=== PATIENT | male | born 1945 | race Caucasian/White ===

== ENCOUNTER 2024-05-13 08:06 | Observation (INO) | payer MEDICARE, OTHER ==
[2024-05-13 09:05] LABS: #Basophils 0.04 10x3/uL (0.0-0.2); %Basophils 0.6 % (0.0-1.0); %Eosinophils 2.9 % (0.0-10.0); %Lymphocytes 22.5 % (21.0-51.0); %Monocytes 8.7 % (0.0-10.0); %Neutrophils 65.1 % (42.0-75.0); Hematocrit 40.1 % (42.0-52.0); Hemoglobin 14.1 g/dL (14.0-18.0); Mean Corpuscular HGB CONC 35.2 g/dL (32.0-36.0); Mean Corpuscular Hemoglobin 31.9 pg (27.0-31.0); Mean Corpuscular Volume 90.7 fL (78.0-98.0); Mean Platelet Volume 10.5 fL (7.4-10.4); Platelet Count 179 10x3/uL (130-400); RBC Distribution Width 13.2 % (11.5-14.5); Red Blood Cell (RBC) Count 4.42 mill/uL (4.70-6.10)
[2024-05-13] MEDS ORDERED: Aspirin Chewable 81 MG TAB ONE (09:08)
[2024-05-13 09:25] LABS: ALT (SGPT) 15 U/L (8-55); AST (SGOT) 19 U/L (5-34); Alkaline Phosphatase 63 U/L (40-110); Anion Gap 12 mmol/L (10-20); BUN (Urea Nitrogen) 17 mg/dL (8.4-25.7); Bilirubin, Total 0.7 mg/dL (0.2-1.2); Calc. Creatinine Clearance 0 mL/min (70-130); Calcium 8.9 mg/dL (7.8-10.44); Carbon Dioxide 22 mmol/L (23-31); Chloride 113 mmol/L (98-107); Estimated GFR 92; Globulin 2.3 g/dL (2.4-3.5); Glucose 105 mg/dL (83-110); Protein, Total 6.3 g/dL (5.8-8.1); Sodium 143 mmol/L (136-145)
[2024-05-13 09:29] LABS: Troponin I Less than 0.010 ng/mL (< 0.028)
[2024-05-13] MEDS ORDERED: Nitroglycerin 0.4 MG TAB (25 Tab Bottle) SL PRN (10:44)
[2024-05-13] MEDS ORDERED: Acetaminophen 325 MG TAB PO PRN (10:44)
[2024-05-13 12:52] LABS: Troponin I Less than 0.010 ng/mL (< 0.028)
[2024-05-13 15:24] LABS: Troponin I Less than 0.010 ng/mL (< 0.028)
[2024-05-13 16:16] VITALS: BMI 27.9
[2024-05-13] MEDS: Famotidine 20 MG TAB PO SCH (19:44)
[2024-05-13] MEDS: Memantine 5 MG TAB PO SCH (19:44)
[2024-05-13] MEDS: Rosuvastatin 20 MG TAB PO SCH (19:44)
[2024-05-13] MEDS: Artificial Tear Ophth Sol 15 ML BOT EA EYE PRN (21:22)
[2024-05-14] MEDS ORDERED: Enoxaparin 40 MG (0.4 mL) SYRINGE SC SCH (09:00)
[2024-05-14] MEDS: Aspirin Chewable 81 MG TAB PO SCH (09:02)
[2024-05-14] MEDS: Minoxidil 2.5 MG TAB PO SCH (09:02)
[2024-05-14] MEDS: Tamsulosin HCl 0.4 MG CAP PO SCH (09:02)
[2024-05-14] MEDS ORDERED: Regadenoson 0.4 MG/5 ML SYRINGE ONE (09:22)
[2024-05-14 13:21] VITALS: BP 128/61; TEMP 98.1
[2024-05-14] MEDS ORDERED: Donepezil HCl 5 MG TAB PO SCH (21:00)
== END 2024-05-14 14:23 | disposition home or self-care (01) ==
LOC: ERS 08:06 → OBS 13:10
PROVIDERS: ADMIT Internal Medicine; ATTEND Internal Medicine
DX: R07.9 Chest pain, unspecified (principal); I10 Essential (primary) hypertension; E11.9 Type 2 diabetes mellitus without complications; E78.5 Hyperlipidemia, unspecified; Z88.0 Allergy status to penicillin; Z79.899 Other long term (current) drug therapy
CPT/HCPCS: 71045; 78452; 80053; 83880; 84484 ×2; 85025; 93005; 93017; 99285; A9502; G0378 ×3; J2785 ×2; 36415